=== PATIENT | female | born 1955 | race Caucasian/White ===

== ENCOUNTER 2017-07-02 09:26 | Day surgery (SDC) ==
[2017-07-02] MEDS ORDERED: LIDOCAINE 1% 20 ML MDV ID STA (09:56)
[2017-07-02] MEDS ORDERED: VERSED ONE (10:50)
[2017-07-02] MEDS ORDERED: DIPRIVAN 20 ML VIAL IVP ONE (10:50)
[2017-07-02 14:16] VITALS: BP 110/67; TEMP 98.6
--- NOTE | 2017-07-03 10:39 | OP ---
PROCEDURE: COLONOSCOPY TO THE CECUM. ENDOSCOPIST: Rommel ANDINO M.D. INDICATION: CHANGE OF BOWEL HABITS. INSTRUMENT: PCFH-190. MEDICATION: PER ANESTHESIA. LAST EXAM: 2004. PROCEDURE: The patient was positioned for colonoscopy. The digital rectal exam was negative. The colonoscope was inserted through the anus and advanced to the cecum. The cecum was identified using the ileocecal valve and the appendiceal orifice as landmarks. The scope was slowly withdrawn through an adequately prepped colon. [place] Bowel Prep Score equal 9. Small polyp in the cecum removed using cold snare polypectomy. A small polyp at 40cm removed using snare cautery. Random right colon biopsies were obtained. The retroflex exam was otherwise negative. She tolerated the procedure without immediate complication. Withdraw time 11 minutes and 30 seconds. PLAN: 1. Review pathology with repeat colonoscopy in 5 years CC: Dr. Jason DYE
== END 2017-07-02 11:50 | disposition home or self-care (01) ==
LOC: SURG 09:26
PROVIDERS: ATTEND Internal Medicine Gastroenterology
DX: R19.4 Change in bowel habit (principal); D12.0 Benign neoplasm of cecum; D12.2 Benign neoplasm of ascending colon; K63.5 Polyp of colon; K57.30 Diverticulosis of large intestine without perforation or abscess without bleeding